=== PATIENT | male | born 1980 | race African-American/Black ===

== ENCOUNTER 2017-10-24 17:19 | Emergency (ER) | payer SELFPAY ==
[~2017-10-24] VITALS: Ht 170.2 cm; Wt 77.1 kg
[2017-10-24 17:29] VITALS: Ht 170.2 cm; Wt 77.1 kg
== END 2017-10-24 18:56 | disposition left against medical advice (07) ==
LOC: ED 17:19
DX: K59.00 Constipation, unspecified (principal); Z90.2 Acquired absence of lung [part of]

== ENCOUNTER 2017-10-24 20:56 | Emergency (ER) | payer SELFPAY ==
[~2017-10-24] VITALS: Ht 172.7 cm; Wt 77.1 kg
[2017-10-24 21:09] VITALS: Ht 172.7 cm; Wt 77.1 kg
[2017-10-25 00:32] LABS: BASOPHIL % 0.3 % (0-2); PLATELET COUNT 268 x10^3mcL (130-400); RED CELL DISTRIBUTION WIDTH 12.4 % (11.5-14.5)
[2017-10-25 00:47] LABS: ALBUMIN 4.5 g/dL (3.4-5.0); ALKALINE PHOSPHATASE 76 U/L (46-116); ALT/SGPT 23 U/L (16-63); AST/SGOT 35 U/L (15-37); BILIRUBIN TOTAL 1.1 mg/dL (0.20-1.00); CALCIUM 9.3 mg/dL (8.5-10.1); CARBON DIOXIDE 28.2 mmol/L (21-32); CHLORIDE SERUM 104 mmol/L (98-107); CREATININE SERUM 1.1 mg/dL (0.7-1.3); GFR1 > 60 mL/min; GLUCOSE SERUM 97 mg/dL (74-106); POTASSIUM SERUM 4.2 mmol/L (3.5-5.1); SODIUM SERUM 135 mmol/L (136-145); TOTAL PROTEIN, SERUM 7.7 g/dL (6.4-8.2)
[2017-10-25 03:41] VITALS: BP 106/61
== END 2017-10-25 03:41 | disposition left against medical advice (07) ==
LOC: ED 20:56
PROVIDERS: Emergency Medicine
DX: F41.9 Anxiety disorder, unspecified (principal); R25.2 Cramp and spasm; K59.00 Constipation, unspecified
CPT/HCPCS: G0480; J2060